=== PATIENT | male | born 1980 | race Caucasian/White ===

== ENCOUNTER 2024-04-17 14:33 | Emergency (ER) | payer OTHER ==
[~2024-04-17] VITALS: Ht 182.9 cm; Wt 95.7 kg
[2024-04-17 14:48] LABS: EOSINOPHILS 0.2 % (0-6); HEMATOCRIT 42.7 % (35.0-50.0); HEMOGLOBIN 14.2 g/dL (12.0-18.0); LYMPHOCYTES 18.6 % (24-44); MCH 28.7 (27-36); MCHC 33.3 g/dl (30-36); MONOCYTES 6.1 % (0-12); NEUTROPHILS 74.1 % (39-80); PLATELET COUNT 436 K/uL (140-440); RBC 4.97 M/ul (4.3-5.7); RDW 14.4 (10.5-15.0)
[2024-04-17] MEDS ORDERED: ATOMOXETINE HCL80 MG PO (14:52)
[2024-04-17] MEDS ORDERED: MELATONIN5 M2 PO (14:53)
[2024-04-17] MEDS ORDERED: BUPRENORPHIN-N1 EACH SL (14:53)
[2024-04-17] MEDS ORDERED: THERA-GEL251 ML TOP (14:54)
[2024-04-17] MEDS ORDERED: OMEPRAZOLE20 MG PO (14:54)
[2024-04-17] MEDS ORDERED: STOOL SOFTENER250 MG PO (14:55)
[2024-04-17] MEDS ORDERED: VITAMIN D350 MC3 PO (14:55)
[2024-04-17] MEDS ORDERED: HYDROXYZINE HCL25 MG PO (14:56)
[2024-04-17] MEDS ORDERED: VENTOLIN HFA18 GM INH (14:58)
[2024-04-17] MEDS ORDERED: HYDROCODON-ACE1 EA10 PO (14:58)
[2024-04-17] MEDS ORDERED: TRAZODONE HCL100 MG PO (14:59)
[2024-04-17 15:09] LABS: ALBUMIN 4.4 g/dL (3.4-5.0); ALBUMIN/GLOBULIN RATIO 1.22 (1.1-2.4); ANION GAP 14.4 (7-21); BILIRUBIN, TOTAL 0.5 ng/dL (0.2-1.0); BUN/CREATININE RATIO 16.03 (6.0-28.6); CREATININE, SERUM 1.06 mg/dL (0.70-1.30); POTASSIUM 4.4 mmol/L (3.5-5.1)
[2024-04-17 16:38] LABS: INFLUENZA B NAA NEGATIVE (NEGATIVE); RESPIRATORY SYNCYTIAL VIR NAA NEGATIVE (NEGATIVE)
[2024-04-17 17:51] VITALS: BP 157/94
--- NOTE | 2024-04-18 22:13 | EKG ---
[facility] [address] [place] [address] Signed Normal sinus rhythm Cannot rule out Inferior infarct , age undetermined Abnormal ECG No previous ECGs available Confirmed by Eden Oglesby MD () on 04/18/2024 10:13:47 PM Electronically Signed By: EDEN OGLESBY MD 04/18/242212 PATIENT NAME: LUC ECHOLS ALAN Electrocardiogram DATE OF : 84 PHYSICIAN: EDEN OGLESBY MD REPORT #: [id number] REPORT IS CONFIDENTIAL AND NOT TO BE RELEASED WITHOUT AUTHORIZATION
== END 2024-04-17 17:49 | disposition other institution, planned readmission (95) ==
LOC: ED 14:33
PROVIDERS: Emergency Medicine
DX: R61 Generalized hyperhidrosis (principal); Z88.8 Allergy status to other drugs, medicaments and biological substances; Z79.899 Other long term (current) drug therapy
CPT/HCPCS: 36415; 71045; 80053; 83735; 84484; 85025; 87502; 93005; 93010; 99285-25; U0002